=== PATIENT | male | born 1995 | race Two or more races ===

== ENCOUNTER → 2019-11-08 | Outpatient (CLI) | payer MEDICAID ==
[~2019-11-08] MED LIST: OMNIPAQUE 350 MG/ML, 100ML BOTTLE ONE
== END | disposition home or self-care (01) ==
LOC: CFH 13:04
PROVIDERS: ATTEND Nurse Practitioner Family
DX: R56.9 Unspecified convulsions (principal)
CPT/HCPCS: 70496; Q9967

== ENCOUNTER 2020-05-25 08:37 | Outpatient (CLI) | payer MEDICAID | END 2020-05-25 23:59 | disposition home or self-care (01) | LOC: CARD 08:37 | PROVIDERS: ATTEND Nurse Practitioner Family | DX: R56.9 Unspecified convulsions (principal) | CPT/HCPCS: 95819 ==